=== PATIENT | male | born 1950 | race Caucasian/White ===

== ENCOUNTER → 2018-02-18 | Outpatient (CLI) | payer MEDICARE, BC ==
[2018-02-18 08:59] LABS: ALBUMIN 4.2 gm/dL (3.5-5.0); BILIRUBIN,TOTAL 0.4 mg/dL (0.0-1.0); CALCIUM 9.4 mg/dL (8.4-10.2); CHOLESTEROL RISK RATIO 2.7; CREATININE, serum 0.65 mg/dL (0.66-1.25); POTASSIUM 4.3 mmol/L (3.4-5.0); TOTAL PROTEIN 7.4 gm/dL (6.4-8.2)
== END ==
LOC: COL.LAB 08:22
PROVIDERS: Internal Medicine Cardiovascular Disease
DX: I25.10 Atherosclerotic heart disease of native coronary artery without angina pectoris (principal); E78.5 Hyperlipidemia, unspecified

== ENCOUNTER 2021-05-09 02:20 | Inpatient (IN) | payer MEDICARE, BC ==
[~2021-05-09] VITALS: Ht 180.3 cm; Wt 95.1 kg
--- NOTE | 2021-05-09 03:40 | NUR ---
Pt. arrived to the floor via [facility]. Pt.is able to independently ambulate to the bed. Pt. is A&OX3, assessment complete. IV to lt. ac patent, IV fluids infusing per orders. Pt. denies pain or other needs. Call light within reach.
[2021-05-09] MEDS ORDERED: COZAAR 50MG50 MG/TAB PO (04:16)
[2021-05-09] MEDS ORDERED: LIPITOR 40MG TA40 MG PO (04:16)
[2021-05-09] MEDS ORDERED: HCTZ 25MG TAB25 MG PO (04:17)
[2021-05-09] MEDS ORDERED: COREG12.5 MG PO (04:18)
[2021-05-09] MEDS ORDERED: PROTONIX 40MG T40 MG PO (04:18)
[2021-05-09] MEDS ORDERED: MOTRIN 200200 MG/TAB PO (04:20)
[2021-05-09 04:33] VITALS: BP 158/81; PULSE 98; TEMP 97.5
[2021-05-09 08:00] VITALS: BP 146/87; PULSE 96; TEMP 98.1
--- NOTE | 2021-05-09 10:14 | NUR ---
plate worker met with patient to discuss discharge plan. Patient currently lives at home with his Marilyn ([phone]) in [place]. He is independent with his ADL's and does not utilize any DME to assist with mobility. Patient has no home oxygen needs but at night he does use a CPAP that is managed through [facility]. PCP is Mitzy Roper at [facility]. He utilizes [facility] in [place] for medications with no cost difficulty. Patient reports that he has a DPOA-HC form " but hasn't filled it out". Education provided that his would be his decision maker. Patient is planning on returning home once medically ready. Collaborated with the patients RN who states that he is independent in his room. DIscharge plan: Home with spouse
[2021-05-09 11:29] LABS: BASO % 0.5 % (0.0-2.0); EOS # 0.1 K/mm3 (0.0-0.7); EOS % 1.6 % (0.0-4.0); GRAN % 78.3 % (42.2-75.2); HEMOGLOBIN 11.3 g/dl (13.5-18.0); LYMPH # 0.8 K/mm3 (1.2-3.4); MEAN CELL VOLUME 95 fl (80.0-100.0); MEAN CORPUSCULAR HEMOGLOBIN 32 pg (27-31); MEAN CORPUSCULAR HGB CONC 33 g/dl (33.0-37.0); MEAN PLATELET VOLUME 9.5 fl (7.4-10.4); MONO # 0.4 K/mm3 (0.1-0.6); MONO % 6.3 % (1.7-9.3); PLATELET COUNT 248 K/mm3 (130-400); RED BLOOD COUNT 3.59 M/mm3 (4.20-5.60); REDCELL DISTRIBUTION WIDTH-CV 13.5 % (11.5-14.5)
[2021-05-09 11:38] LABS: ALBUMIN 2.7 gm/dL (3.4-4.8); BILIRUBIN,TOTAL 0.4 mg/dL (0.2-1.2); CALCIUM 8.2 mg/dL (8.4-10.2); CREATININE, serum 0.78 mg/dL (0.72-1.25); POTASSIUM 3.9 mmol/L (3.5-4.5)
[2021-05-09 11:41] VITALS: BP 130/67; PULSE 83; TEMP 98.6
--- NOTE | 2021-05-09 13:07 | NUR ---
First visit from the food processing plant manager. No needs right now.
[2021-05-09 15:30] VITALS: BP 153/81; TEMP 100.3
[2021-05-09 20:10] VITALS: BP 145/72; PULSE 95; TEMP 98.5
--- NOTE | 2021-05-09 22:30 | NUR ---
Pt. sitting up in bed. Pt. is A&OX3, assessment complete. IV to lt. ac patent, IV fluids infusing per orders. Pt. reports abd pain at a 6 on pain scale, giving pain meds per orders. Pt. denies further needs, call light within reach.
[2021-05-09 23:39] VITALS: BP 135/86; PULSE 85; TEMP 98.5
[2021-05-10 04:22] VITALS: BP 128/93; PULSE 89; TEMP 98.9
[2021-05-10 06:17] LABS: BASO % 0.4 % (0.0-2.0); EOS # 0.1 K/mm3 (0.0-0.7); EOS % 1.3 % (0.0-4.0); GRAN % 76.2 % (42.2-75.2); HEMOGLOBIN 11.4 g/dl (13.5-18.0); LYMPH # 1.1 K/mm3 (1.2-3.4); LYMPH % 13.9 % (20.0-51.0); MEAN CELL VOLUME 92 fl (80.0-100.0); MEAN CORPUSCULAR HEMOGLOBIN 31 pg (27-31); MEAN CORPUSCULAR HGB CONC 34 g/dl (33.0-37.0); MEAN PLATELET VOLUME 9.5 fl (7.4-10.4); MONO # 0.6 K/mm3 (0.1-0.6); MONO % 7.8 % (1.7-9.3); PLATELET COUNT 262 K/mm3 (130-400); RED BLOOD COUNT 3.68 M/mm3 (4.20-5.60); REDCELL DISTRIBUTION WIDTH-CV 13.6 % (11.5-14.5)
[2021-05-10 06:18] LABS: HEMATOCRIT 33.7 % (42.0-52.0)
[2021-05-10 06:30] LABS: CALCIUM 7.8 mg/dL (8.4-10.2); CREATININE, serum 0.74 mg/dL (0.72-1.25); POTASSIUM 3.3 mmol/L (3.5-4.5)
[2021-05-10 08:00] VITALS: BP 147/80; PULSE 90; TEMP 98
[2021-05-10 11:22] VITALS: BP 138/72; PULSE 80; TEMP 98.5
[2021-05-10 16:40] VITALS: BP 123/66; PULSE 88; TEMP 99.7
[2021-05-10 20:00] VITALS: BP 137/80; PULSE 90; TEMP 98.5
[2021-05-10 23:34] VITALS: BP 147/78; PULSE 86; TEMP 97.8
[2021-05-11 03:52] VITALS: BP 145/71; PULSE 85; TEMP 97.9
--- NOTE | 2021-05-11 04:10 | NUR ---
Report received from day shift nurse, Betito CASTANEDA. Patient has had an uneventful shift thus far.Patient has complained of intermittent bloating in his lower abd. but had no other complaints of pain throughout the shift. Full body assessment completed and vital signs have been WNL. Patient complained of loose stools but has been tolerating ice chips. Patient has no other complaints at this time, call light within reach.
--- NOTE | 2021-05-11 04:17 | NUR ---
Patients was at the bedside after alloted visiting hours, this nurse and the charge nurse informed the patienet of the visiting hours. Spouse stated that "well when I leave she'll holler". I inquired why and the patient said that she has PTSD. I assured the and the patient that we would take care of her if any issues arrive. Approximately 15 minutes later the patient began wailing and asking for her dad. Patient informed me that she refers to her as "dad" and just wanted him at the bedside for comfort. I informed the patient that I could not go against the institutes policies. Patient calmed down about an hour after the incident and apologized for "how I was acting". Full body assessment was completed and vital signs have been WNL. Fernández in place, draining Coca[employer]a colored fluid. MED drain is working well and has been emptied, approximately 60 mls of been removed this shift. Patient has no other complaints at this time, call light within reach.
[2021-05-11 06:16] LABS: BASO % 0.4 % (0.0-2.0); EOS # 0.1 K/mm3 (0.0-0.7); EOS % 1.8 % (0.0-4.0); GRAN # 5.9 K/mm3 (1.4-6.5); GRAN % 73.5 % (42.2-75.2); HEMOGLOBIN 10.8 g/dl (13.5-18.0); LYMPH # 1.2 K/mm3 (1.2-3.4); LYMPH % 14.6 % (20.0-51.0); MEAN CELL VOLUME 94 fl (80.0-100.0); MEAN CORPUSCULAR HEMOGLOBIN 31 pg (27-31); MEAN CORPUSCULAR HGB CONC 33 g/dl (33.0-37.0); MEAN PLATELET VOLUME 9.7 fl (7.4-10.4); MONO # 0.7 K/mm3 (0.1-0.6); MONO % 9.2 % (1.7-9.3); PLATELET COUNT 257 K/mm3 (130-400); RED BLOOD COUNT 3.47 M/mm3 (4.20-5.60); REDCELL DISTRIBUTION WIDTH-CV 13.6 % (11.5-14.5)
[2021-05-11 06:25] LABS: HEMATOCRIT 32.6 % (42.0-52.0)
[2021-05-11 06:41] LABS: CALCIUM 7.9 mg/dL (8.4-10.2); CREATININE, serum 0.68 mg/dL (0.72-1.25); POTASSIUM 3.1 mmol/L (3.5-4.5)
[2021-05-11 07:25] VITALS: BP 157/80; PULSE 84; TEMP 98.3
[2021-05-11 12:00] VITALS: BP 160/74; PULSE 83; TEMP 98.4
[2021-05-11 16:00] VITALS: BP 173/92; PULSE 90; TEMP 98.4
[2021-05-11 20:00] VITALS: BP 154/80; PULSE 89; TEMP 98.3
--- NOTE | 2021-05-11 20:42 | NUR ---
PT ASKING FOR PAIN MEDS, TOO EARLY FOR NORCO. MEDICATED WITH HS MEDS INCLUDING TYLENOL 650MG PO FOR ABD PAIN/CRAMPING. PT HAS INT TO LEFT AC, FLUSHES WELL. IS INDEPENDENT IN ROOM. REPORTS LOOSE STOOLS.
--- NOTE | 2021-05-11 21:21 | NUR ---
NORCO 1 TAB PO GIVEN AT THIS TIME FOR PAIN 6/10 TO LLQ. HAS CPAP AT BEDSIDE.
[2021-05-11 23:47] VITALS: BP 142/80; PULSE 76; TEMP 98
[2021-05-12 04:12] VITALS: BP 171/86; PULSE 80; TEMP 98
--- NOTE | 2021-05-12 04:33 | NUR ---
PT REPORTS PAIN/CRAMPING TO [facility], MEDICATED WITH NORCO 1 TAB NOW. PT REPORTS HIS PAIN STARTED AROUND 4AM, OTHERWISE HAD SLEPT WELL.
[2021-05-12 06:02] LABS: BASO % 0.4 % (0.0-2.0); EOS # 0.1 K/mm3 (0.0-0.7); EOS % 1.3 % (0.0-4.0); GRAN # 5.8 K/mm3 (1.4-6.5); GRAN % 72.6 % (42.2-75.2); HEMOGLOBIN 10.8 g/dl (13.5-18.0); LYMPH # 1.1 K/mm3 (1.2-3.4); LYMPH % 14.2 % (20.0-51.0); MEAN CELL VOLUME 90 fl (80.0-100.0); MEAN CORPUSCULAR HEMOGLOBIN 31 pg (27-31); MEAN CORPUSCULAR HGB CONC 34 g/dl (33.0-37.0); MEAN PLATELET VOLUME 9.8 fl (7.4-10.4); MONO # 0.9 K/mm3 (0.1-0.6); MONO % 11.2 % (1.7-9.3); PLATELET COUNT 301 K/mm3 (130-400); RED BLOOD COUNT 3.54 M/mm3 (4.20-5.60); REDCELL DISTRIBUTION WIDTH-CV 13.3 % (11.5-14.5)
[2021-05-12 06:13] LABS: CALCIUM 7.8 mg/dL (8.4-10.2); CREATININE, serum 0.63 mg/dL (0.72-1.25)
[2021-05-12 06:16] LABS: POTASSIUM 2.9 mmol/L (3.5-4.5)
--- NOTE | 2021-05-12 06:30 | NUR ---
POTASSIUM 2.9 TODAY, ON K+ PROTOCOL, REORDERED DOSES.
--- NOTE | 2021-05-12 07:01 | NUR ---
FIRST DOSE OF EFFERVESCENT POTASSIUM GIVEN.
[2021-05-12 07:30] VITALS: BP 134/85; PULSE 73; TEMP 98.4
[2021-05-12] MEDS ORDERED: AMOXICILLIN 8751 TAB PO (07:37)
[2021-05-12] MEDS ORDERED: FLAGYL500 MG PO (07:38)
[2021-05-12] MEDS ORDERED: K-DUR20 MEQ PO (09:01)
[2021-05-12] MEDS ORDERED: NORCO 325 MG-51 TAB PO (09:03)
--- NOTE | 2021-05-12 10:05 | NUR ---
Patient scheduled to discharge today. Patient presented with the [facility].IM form. Education provided and the patient verbalizes his agreement with the discharge plan for today. Patient's signed original placed in his chart and copy provided back to the patient. Discharge plan: Home
[2021-05-12 11:27] VITALS: BP 160/90; PULSE 86; TEMP 98.8
--- NOTE | 2021-05-12 12:41 | NUR ---
Received report from day shift. Assessment performed. VSS. Patient here for diverticulitis. IV dc'd. AM meds administered. Discharge instructions provided, medications reviewed. Patient denies any questions or concerns. Patient escorted out via wheelchair.
== END 2021-05-12 12:00 | disposition home or self-care (01) | DRG 392 ==
LOC: MEDICAL 02:20 → SURG 03:40
PROVIDERS: Physician Assistant; ADMIT Internal Medicine
PROC: 5A09357 Assistance with Respiratory Ventilation, Less than 24 Consecutive Hours, Continuous Positive Airway Pressure (ICD-10-PCS; principal; 2021-05-10)
DX: K57.20 Diverticulitis of large intestine with perforation and abscess without bleeding (principal); I10 Essential (primary) hypertension; E78.5 Hyperlipidemia, unspecified; G47.33 Obstructive sleep apnea (adult) (pediatric); I25.10 Atherosclerotic heart disease of native coronary artery without angina pectoris; K21.9 Gastro-esophageal reflux disease without esophagitis; Z66 Do not resuscitate; E87.6 Hypokalemia; Z23 Encounter for immunization; Z95.5 Presence of coronary angioplasty implant and graft
CPT/HCPCS: 99222-AI; 99232-AI; 99239; J2270; J2543; J7030

== ENCOUNTER 2021-06-02 13:21 | Inpatient (IN) | payer MEDICARE, BC ==
[~2021-06-02] VITALS: Ht 180.3 cm; Wt 90.3 kg
[~2021-06-02 13:21] MED LIST: AMOXICILLIN 8751 TAB PO; COREG12.5 MG PO; COZAAR 50MG50 MG/TAB PO; FLAGYL500 MG PO; HCTZ 25MG TAB25 MG PO; K-DUR20 MEQ PO; LIPITOR 40MG TA40 MG PO; MOTRIN 200200 MG/TAB PO; NORCO 325 MG-51 TAB PO; PROTONIX 40MG T40 MG PO
[2021-06-10] VITALS (9 sets, daily range): BP systolic 124–141; BP diastolic 68–84; PULSE 80–93; TEMP 97.6–98.2
[2021-06-10] MEDS ORDERED: AMITRIPTYLINE H25 M1 PO (10:36)
[2021-06-10] MEDS ORDERED: ASPIRIN 81M81 MG/TA2 PO (10:38)
--- NOTE | 2021-06-10 16:15 | NUR ---
Patient arrived to room 323 from OR at this time, he is alert/oriented, vital signs stable, reports abd pain is minimal at this time, abd incision site dressinsg are C/D/I, patient tolerating sips and chips so far, patient has his hearing aids and his home bi-pap machine here with him, present at bedside, discussed plan of care, will continue to monitor, they deny needs/concerns at this time
--- NOTE | 2021-06-10 18:46 | NUR ---
patient continues to do well post-op, vitals remain stable, pain controlled and scheduled tylenol given, instructed on splinting with coughing as this si when he indicates it hurts, IS provided by RT and educating patient on use he is able to demonstrate proper technique, he is tolerating CL diet well/ IVF discontinued as ordered, lopez cath patent with clear yellow urine, he denies other needs
--- NOTE | 2021-06-11 00:27 | NUR ---
Received report from day shift. Patient alert and oriented x4. VSS. Patient here for robotic sigmoidectomy. Surgical sites x4 covered with bandaid CDI. One transverse with minimal drainage. Patient reports pain 3/10 requests pain medication prior to ambulation. Assessment performed. PM meds administered. Patient resting in bed with call light near.
[2021-06-11 03:58] VITALS: BP 118/83; PULSE 88; TEMP 97.6
[2021-06-11 06:12] LABS: BASO % 0.2 % (0.0-2.0); GRAN # 8.1 K/mm3 (1.4-6.5); GRAN % 85.3 % (42.2-75.2); HEMATOCRIT 31.2 % (42.0-52.0); LYMPH # 0.9 K/mm3 (1.2-3.4); LYMPH % 9.1 % (20.0-51.0); MEAN CELL VOLUME 97 fl (80.0-100.0); MEAN CORPUSCULAR HEMOGLOBIN 31 pg (27-31); MEAN CORPUSCULAR HGB CONC 32 g/dl (33.0-37.0); MEAN PLATELET VOLUME 10.1 fl (7.4-10.4); MONO # 0.5 K/mm3 (0.1-0.6); MONO % 5.1 % (1.7-9.3); PLATELET COUNT 169 K/mm3 (130-400); RED BLOOD COUNT 3.23 M/mm3 (4.20-5.60); REDCELL DISTRIBUTION WIDTH-CV 16.7 % (11.5-14.5)
[2021-06-11 06:22] LABS: CALCIUM 7.4 mg/dL (8.4-10.2); CREATININE, serum 0.75 mg/dL (0.72-1.25); POTASSIUM 3.6 mmol/L (3.5-4.5)
[2021-06-11 08:00] VITALS: BP 143/83; PULSE 88; TEMP 98.2
--- NOTE | 2021-06-11 08:45 | NUR ---
Patient awake this am. Tolerated low fiber breakfast without nausea. Patient reports passing flatus, abdomen is rounded & distended. Bowels audible. Fernández to DD. Urine output yellow, clear adequate. Int. Patietn up and we ambulated halls and he did well. Will monitor.
--- NOTE | 2021-06-11 09:41 | NUR ---
rounded. Plan of care reviewed, will plan for lopez care teaching & leg bag cares.
[2021-06-11 12:00] VITALS: BP 135/67; PULSE 82; TEMP 98.6
--- NOTE | 2021-06-11 12:15 | NUR ---
Patietn watching TV and playing games on his ipad. minmal complaints, in positive spirits. Will monitor.
--- NOTE | 2021-06-11 12:42 | NUR ---
stopped by but nothing needed at this time.
--- NOTE | 2021-06-11 13:15 | NUR ---
fishing worker met with patient to discuss discharge plan. Patient was just recently here. Patient lives at home with his Marilyn ([phone]) in [place]. He is independent with his ADL's and does not utilize any DME to assist with mobility. Patient does not have any home oxygen needs but does utilize a CPAP machine that is managed through [facility]. PCP is Mitzy Roper at [place]. He utilizes [facility] in [place] for medications. Patient does not have a DPOA-HC established at this time. Discharge plan: Home
--- NOTE | 2021-06-11 15:31 | NUR ---
Patient resting in bed. We ambulated the halls. He did well. Fernández cares education & leg bag teaching given to patient and his . He was able to demonstate & understanding, without questions or concerns. He was up to the bathroom & did have a small loose brown stool. no blood seen. Will monitor
[2021-06-11 16:00] VITALS: BP 142/78; PULSE 97; TEMP 98.1
--- NOTE | 2021-06-11 17:47 | NUR ---
Dinner ordered. Patient continues to do well with minimal complaints. Pain managed at this time with tylenol. No other needs at this time.
[2021-06-11 19:14] VITALS: BP 140/77; PULSE 102; TEMP 98.4
--- NOTE | 2021-06-11 19:58 | NUR ---
RECEIVED CHANGE OF SHIFT REPORT FROM DAY SHIFT RN. PATIENT RESTING IN BED DURING REPORT. DENIES ANY NEEDS AT TIME OF REPORT.
[2021-06-11 23:43] VITALS: BP 156/81; PULSE 95; TEMP 97.8
[2021-06-12 03:36] VITALS: BP 135/79; PULSE 87; TEMP 98
--- NOTE | 2021-06-12 07:13 | NUR ---
Change of shift report given to day shift RNSamantha.
[2021-06-12 07:50] VITALS: BP 143/75; PULSE 91; TEMP 98.2
--- NOTE | 2021-06-12 08:00 | NUR ---
PATIENT IS A&O. VSS. NO C/O PAIN OR NAUSEA. ABD LAP SITES X5 ARE CD&I WITH BANDAIDS. ABD TRANSVERSE CD&I WITH GAUZE. ABD IS ROUND AND WITH POSITIVE BOWL SOUNDS. SON TO DD WITH MOD AMOUNTS OF CLEAR YELLOW URINE NOTED. RIGHT HAND IV TO INT. TOLERATING LOW FIBER DIET. HEAD TO TOE ASSESSMENT COMPLETE. BREAKFAST TRAY AT BEDSIDE. AM MEDS GIVEN. INDEPENDENT IN ROOM. CALL LIGHT IN REACH.
[2021-06-12] MEDS ORDERED: NORCO 325 MG-51 TAB PO (11:07)
[2021-06-12 11:37] VITALS: BP 139/81; PULSE 87; TEMP 97.6
--- NOTE | 2021-06-12 14:28 | NUR ---
PATIENT'S HERE. GAVE DISCHARGE INSTRUCTIONS, E-SCRIPT SENT, SON CATH CARE & LEG BAG TEACHING GIVEN, AND DISCUSSED F/U APT. ANSWERED QUESTIONS/CONCERNS. IV DC'D AND COVERED WITH GAUZE & COBAN. PATIENT IS DRESSED, PACKED AND DISCHARGED HOME WITH .
== END 2021-06-12 14:30 | disposition home or self-care (01) | DRG 330 ==
LOC: INPTSU 06-10 09:19 → SURG 06-10 12:00
PROVIDERS: ADMIT Surgery
PROC: 8E0W4CZ Robotic Assisted Procedure of Trunk Region, Percutaneous Endoscopic Approach (ICD-10-PCS; 2021-06-10)
PROC: 0DTN4ZZ Resection of Sigmoid Colon, Percutaneous Endoscopic Approach (ICD-10-PCS; principal; 2021-06-10 12:00)
DX: K57.20 Diverticulitis of large intestine with perforation and abscess without bleeding (principal); N32.1 Vesicointestinal fistula; E44.0 Moderate protein-calorie malnutrition; F41.9 Anxiety disorder, unspecified; I10 Essential (primary) hypertension; G47.33 Obstructive sleep apnea (adult) (pediatric); G47.00 Insomnia, unspecified; E78.00 Pure hypercholesterolemia, unspecified; I25.10 Atherosclerotic heart disease of native coronary artery without angina pectoris; K21.9 Gastro-esophageal reflux disease without esophagitis; I73.9 Peripheral vascular disease, unspecified; Z95.5 Presence of coronary angioplasty implant and graft; I25.2 Old myocardial infarction; Z68.27 Body mass index [BMI] 27.0-27.9, adult
CPT/HCPCS: A4314; A9284; J0690; J1650; J2250; J2704; J3010; J7120

== ENCOUNTER 2021-07-02 20:03 | Emergency (ER) | payer MEDICARE, BC ==
[~2021-07-02] VITALS: Ht 180.3 cm; Wt 90.9 kg
[~2021-07-02 20:03] MED LIST changes: +AMITRIPTYLINE H25 M1 PO; +ASPIRIN 81M81 MG/TA2 PO
[2021-07-02 20:15] VITALS: TEMP 97.6
[2021-07-02 21:23] LABS: HEMOGLOBIN 10.3 g/dl (13.5-18.0); MEAN CELL VOLUME 94 fl (80.0-100.0); MEAN CORPUSCULAR HEMOGLOBIN 32 pg (27-31); MEAN CORPUSCULAR HGB CONC 34 g/dl (33.0-37.0); MEAN PLATELET VOLUME 9.8 fl (7.4-10.4); PLATELET COUNT 303 K/mm3 (130-400); RED BLOOD COUNT 3.25 M/mm3 (4.20-5.60); REDCELL DISTRIBUTION WIDTH-CV 18.7 % (11.5-14.5)
[2021-07-02 21:30] LABS: HEMATOCRIT 30.6 % (42.0-52.0)
[2021-07-02 21:41] LABS: ALBUMIN 2.9 gm/dL (3.4-4.8); BILIRUBIN,TOTAL 0.3 mg/dL (0.2-1.2); CALCIUM 8.2 mg/dL (8.4-10.2); CREATININE, serum 0.74 mg/dL (0.72-1.25); POTASSIUM 3.9 mmol/L (3.5-4.5); TOTAL PROTEIN 7.2 gm/dL (6.2-8.1)
[2021-07-02 21:55] LABS: BASOPHIL 1 % (0-2); EOSINOPHIL 1 % (0-4); LYMPHOCYTE 42 % (20.0-51.0); NEUTROPHILS 50 % (42.0-75.2); NUCLEATED RED BLOOD CELL 1 (0-6)
[2021-07-02 21:56] LABS: ANISOCYTOSIS 1+; PLATELET ESTIMATE NORMAL (NORMAL)
[2021-07-02 23:20] LABS: COLLECTION METHOD CLEAN CATCH
[2021-07-02 23:36] LABS: MUCOUS Present (NOT PRESENT); PH 6 (5-8); SQUAMOUS EPITHELIAL None Seen /hpf (0-10); URINE APPEARANCE Clear (CLEAR/HAZY); URINE BACTERIA None Seen /hpf (NONE SEEN); URINE BILIRUBIN Negative (NEGATIVE); URINE BLOOD Negative (NEGATIVE); URINE COLOR Yellow (YELLOW); URINE GLUCOSE Negative (NEGATIVE); URINE KETONE Trace (NEGATIVE); URINE LEUKOCYTE ESTERASE Negative (NEGATIVE); URINE NITRATE Negative (NEGATIVE); URINE PROTEIN(semi-quant) Negative (NEGATIVE); URINE UROBILINOGEN Negative (NEGATIVE)
[2021-07-02] MEDS ORDERED: MIRALAX PA17 GM/Dose PO (23:48)
[2021-07-03 00:12] VITALS: BP 172/99; PULSE 101
== END 2021-07-03 00:13 | disposition home or self-care (01) ==
LOC: COL.ER 20:03
PROVIDERS: Emergency Medicine
DX: K59.00 Constipation, unspecified (principal); D64.9 Anemia, unspecified; Z90.49 Acquired absence of other specified parts of digestive tract; Z28.310 Unvaccinated for COVID-19
CPT/HCPCS: J1885; J2270; J7030; Q9967